=== PATIENT | male | born 2000 | race Caucasian/White ===

== ENCOUNTER 2020-06-04 17:24 | Emergency (ER) | payer OTHER, SELFPAY ==
--- NOTE | ~2020-06-04 | XR_ITS ---
EXAMINATION: XR CHEST CLINICAL INFORMATION: Cough COMPARISON: None TECHNIQUE: Frontal view of the chest was obtained. FINDINGS: No significant abnormality is noted involving the heart, lungs, mediastinum, bony thorax or soft tissues. XR/XR chest 1V IMPRESSION: Unremarkable examination.
[2020-06-04 20:03] VITALS: BP 151/85; PULSE 125; RESP 16; TEMP 37.4; O2SAT 98; BMI 19.3
--- NOTE | 2020-06-04 21:00 | ED_ITS ---
HPI - URI/Sore Throat General Chief Complaint: Upper Respiratory Symptoms Stated Complaint: cough Source: patient Mode of arrival: ambulatory Limitations: no limitations History of Present Illness HPI Narrative: 19-year-old male with past medical history of cerebral palsy, asthma, and congenital foot anomaly presents with several weeks of upper respiratory symptoms. Patient states to have a cough, postnasal drip, and intermittent shortness of breath. He has seen his primary care, tire duster, and has had multiple prescriptions for prednisone, Claritin, and antibiotics. He denies fevers, chills, chest pain or pressure, palpitations, abdominal pain, abdominal distention, dysuria, hematuria, and edema. MD elicited complaint: cough and nasal congestion Onset (ago): week(s) Consistency: constant Severity: moderate Description of mucous: clear and watery Able to tolerate fluids by mouth: Yes Relieving factors: nothing Associated symptoms: denies other symptoms Treatments prior to arrival: antibiotics Related Data Previous Rx's Medication Instructions Recorded benzonatate [Tessalon Perles] 100 mg PO TID PRN #30 cap 06/05/20 Allergies Allergy/AdvReac Type Severity Reaction Status Date / Time pollen extracts [POLLEN] Allergy Unknown RUNNY NOSE Unverified 10/26/19 17:02 Review of Systems Review of Systems: Constitutional: No Fever, No Chills ENT/Mouth: No sore throat, No Rhinorrhea, No Swallowing Difficulty Eyes: No Eye Pain, No Swelling, No Redness Cardiovascular: No Chest Pain, positive intermittent SOB, No Orthopnea, no Edema Respiratory: Positive postnasal drip, Positive Cough, No Sputum, No Wheezing, positive dyspnea Gastrointestinal: No Nausea, No Vomiting, No Diarrhea, No abdominal Pain, No Hematochezia, No Melena Genitourinary: No Dysuria, No Urinary Frequency, No Hematuria Musculoskeletal: No joint pain, No Myalgias Skin: No Skin Lesions, No rash Neuro: No Weakness, No Numbness, No Dizziness, No Headache Psych: No Anxiety/Panic, No Depression Heme/Lymph: No Bruising, No Lymphadenopathy Endocrine: No Polyuria, No Polydipsia Yes all other systems are reviewed and are negative [facility] Past Medical History Attestation statement: The following information was validated with the patient. Source: old records reviewed Medical History Asthma Cerebral palsy Foot anomaly, congenital Social History Social History Advance Directives: No Advance Directives Information Provided: Yes Physical Exam Vital Signs: Vital Signs: Last Vital Signs Temp 99.4 F 06/04/20 20:03 Pulse 88 06/05/20 00:41 Resp 16 06/05/20 00:41 BP 153/93 H 06/05/20 00:41 Pulse Ox 99 06/05/20 00:41 Body Mass Index 19.3 Appearance: Alert. Oriented X3. No acute distress. Small for his age, thin, frail Eyes: Pupils equal, round and reactive to light. EOMI, sclera nonicteric ENT: Pharynx normal. Nares patent, oral mucosa moist, tympanic membranes normal bilaterally Neck: Normal inspection. Neck supple. CVS: Tachycardic heart rate and rhythm. Pulses normal. Respiratory: No respiratory distress. Breath sounds normal. Abdomen: Soft and nontender. Skin: Skin warm and dry. Normal skin color. Normal skin turgor. Extremities: No lower extremity edema. Neuro: No motor deficit. No sensory deficit. Course Course Course Narrative: 19-year-old male presents with cough, postnasal drip and intermittent shortness of breath. Has seen pulmonology and primary care several times over the past few weeks. Was given prednisone, antibiotics, albuterol inhalers, and Claritin. Patient states that all the treatments have not cleared up his postnasal drip or his cough. Will order chest x-ray, COVID testing. COVID test is negative. Chest x-ray is negative for acute findings. Will order Tessalon Perles to help with cough. Patient was advised to follow-up with pulmonology. MDM - URI/Sore Throat Differential Diagnosis Differential diagnosis: Likely upper respiratory infection, viral infection, bronchitis and influenza Medical Records Attestation: I reviewed the patient's medical records. Lab Data Attestation: I reviewed the patient's lab results. Labs: Lab Results 06/05/20 Range/Units 00:45 Coronavirus (PCR) NEGATIVE (Negative) Influenza Type A (PCR) NEGATIVE (Negative) Influenza Type B (PCR) NEGATIVE (Negative) RSV RNA Qual (PCR) NEGATIVE (Negative) Imaging Data Chest x-ray: Attestation: I personally reviewed and interpreted this imaging study as follows: Radiologist's impression: EXAMINATION: XR CHEST CLINICAL INFORMATION: Cough COMPARISON: None TECHNIQUE: Frontal view of the chest was obtained. FINDINGS: No significant abnormality is noted involving the heart, lungs, mediastinum, bony thorax or soft tissues. XR/XR chest 1V IMPRESSION: Unremarkable examination. Discharge Plan Discharge Clinical Impression: Upper respiratory infection Qualifiers: URI type: unspecified viral URI Qualified Code(s): J06.9 - Acute upper respiratory infection, unspecified Patient Disposition: Home, Self-Care Instructions: Upper Respiratory Infection (ED), Cold Symptoms (ED) Additional Instructions: You were evaluated for a cough. We tested you for COVID-19. Your test results are pending. I will call you with your results. Please use Tessalon Perles as needed for cough. Continue to use medications that were prescribed to you by your primary care provider and tire duster. I thank you for your kindness and patience while waiting for care. Thank you for choosing this emergency department for evaluation. Please follow-up with primary care physician as needed. Return to the emergency department for any new, concerning, or worsening symptoms. Prescriptions: New benzonatate [Tessalon Perles] 100 mg capsule 100 mg PO TID PRN (Reason: cough) Qty: 30 RF: 0 Interventions: ED Discharge Assessment Last Done: 06/05/20 01:00 Discharge Date/Time: 06/05/20 01:01
[2020-06-05 00:41] VITALS: BP 153/93; PULSE 88; RESP 16; O2SAT 99
[2020-06-05] MEDS: Benzonatate 100 MG CAPSULE 200 MG PO (00:51)
[2020-06-05 01:37] LABS: Influenza A PCR NEGATIVE (Negative); Influenza B PCR NEGATIVE (Negative); Resp Syncy Virus RNA Qual PCR NEGATIVE (Negative); SARS COV2 PCR INHOUSE NEGATIVE (Negative)
== END 2020-06-05 01:01 | disposition home or self-care (01) ==
PROVIDERS: Nurse Practitioner Family; Emergency Provider Internal Medicine
DX: J06.9 Acute upper respiratory infection, unspecified (principal); Z20.822 Contact with and (suspected) exposure to COVID-19; R00.0 Tachycardia, unspecified; J45.909 Unspecified asthma, uncomplicated; G80.9 Cerebral palsy, unspecified
CPT/HCPCS: 0241U; 36415; 71045; 99283; 99284

== ENCOUNTER 2021-09-18 10:58 | Outpatient (REF) | payer MEDICAID, SELFPAY ==
[2021-09-18 13:41] LABS: MANUAL DIFF FLAG NO
[2021-09-18 13:43] LABS: Basophils Absolute Auto 0.1 X10*3/uL (0.0-0.2); Basophils Percent Auto 0.7 % (0-2); Eosinophils Absolute Auto 0.1 X10*3/uL (0.0-0.4); Hematocrit 44.9 % (42.0-52.0); Hemoglobin 15.4 g/dl (14.0-18.0); Imm Gran Abs Auto 0.01 X10*3/uL (0.00-0.03); Imm Gran Pct Auto 0.1 % (0.0-0.4); Lymphocytes Absolute Auto 3.4 X10*3/uL (1.2-4.9); Lymphocytes Percent Auto 50.2 % (20-40); Mean Corpuscular HGB Conc 34.3 g/dl (31.0-36.0); Mean Corpuscular Hemoglobin 30.6 pg (27.0-33.0); Mean Corpuscular Volume 89.3 fL (80.0-98.0); Monocytes Absolute Auto 0.6 X10*3/uL (0.1-1.2); Monocytes Percent Auto 9.1 % (2-11); Neutrophils Absolute Auto 2.6 x10*3/uL (2.0-8.3); Neutrophils Percent Auto 37.9 % (45-73); Platelet Count 169 X10*3/uL (160-400); Red Blood Count 5.03 X10*6/uL (4.60-5.80); Red Cell Distribution Width 12.4 % (11.0-16.0); White Blood Count 6.8 X10*3/uL (4.8-10.8)
[2021-09-18 14:10] LABS: Alanine Aminotransferase 134 U/L (0-40); Albumin Level 4.7 g/dL (3.5-5.0); Alkaline Phosphatase 74 U/L (39-117); Anion Gap 16 (12-20); Aspartate Amino Transferase 73 U/L (5-37); Bilirubin Total 0.8 mg/dL (0.0-1.0); Blood Urea Nitrogen 21 mg/dL (9-16); Calcium 9.7 mg/dL (8.4-10.2); Carbon Dioxide 22 mmol/L (22-29); Chloride 103 mmol/L (96-108); Estimated Glomerular Filt Rate > 60; Glucose Fasting 83 mg/dL (60-99); Potassium 4.5 mmol/L (3.3-5.1); Sodium 136 mmol/L (135-145); Total Protein 7.3 g/dL (6.5-8.0)
[2021-09-18 14:16] LABS: TSH reflex Free T4 2.66 uIU/mL (0.32-4.0)
== END 2021-09-18 10:59 | disposition home or self-care (01) ==
LOC: HO.10HDL 10:58
PROVIDERS: Visit Provider Internal Medicine
DX: Z00.00 Encounter for general adult medical examination without abnormal findings (principal); G80.8 Other cerebral palsy; J45.909 Unspecified asthma, uncomplicated; K21.9 Gastro-esophageal reflux disease without esophagitis; R74.01 Elevation of levels of liver transaminase levels
CPT/HCPCS: 36415; 80053; 84443; 85025

== ENCOUNTER 2022-04-14 12:44 | Outpatient (REF) | payer MEDICAID, SELFPAY ==
[2022-04-14 15:50] LABS: Alanine Aminotransferase 107 U/L (0-40); Albumin Level 4.9 g/dL (3.5-5.0); Alkaline Phosphatase 74 U/L (39-117); Anion Gap 19 (12-20); Aspartate Amino Transferase 49 U/L (5-37); Bilirubin Total 1.6 mg/dL (0.0-1.0); Blood Urea Nitrogen 15 mg/dL (9-16); Carbon Dioxide 20 mmol/L (22-29); Chloride 104 mmol/L (96-108); Estimated Glomerular Filt Rate > 60; Glucose Random 96 mg/dL (60-115); Iron 154 mcg/dL (45-160); Percent Iron Saturation 41 % (15-50); Potassium 4.5 mmol/L (3.3-5.1); Sodium 138 mmol/L (135-145); Total Iron Binding Capacity 375 mcg/dL (228-428); Total Protein 7.3 g/dL (6.5-8.0); Unsaturated Iron Binding 221 ug/dL
[2022-04-14 15:56] LABS: Ferritin 295 ng/mL (20-250)
[2022-04-15 05:59] LABS: HBc Num1 0.04 S/CO (0.00-0.79); HBsAGNum1 0.28 S/CO (0.00-0.99); Hepatitis A Antibody IgM 0.24 Index (0-0.79); Hepatitis B Core Antibody Nonreactive (Nonreactive); Hepatitis B Surface Antigen Negative (Negative); ~HepC Num1 0.39 S/CO (0.00-0.79); ~Hepatitis A Antibody IgM Nonreactive (Nonreactive); ~Hepatitis B Surface Antibody NONREACTIVE (Nonreactive); ~Hepatitis C Antibody Nonreactive (Nonreactive)
[2022-04-17 18:53] LABS: Ceruloplasmin 25 mg/dL (18-36); Transferrin 416 mg/dL (188-341)
[2022-04-19 12:53] LABS: Anti Nuclear Antibody Screen NEGATIVE (NEGATIVE)
[2022-04-19 13:43] LABS: Smooth Muscle Antibody <20 U (<20)
== END 2022-04-14 12:45 | disposition home or self-care (01) ==
LOC: HO.10HDL 12:44
PROVIDERS: Visit Provider Internal Medicine
DX: F81.9 Developmental disorder of scholastic skills, unspecified (principal); J45.909 Unspecified asthma, uncomplicated
CPT/HCPCS: 36415; 80053; 82390; 82728; 83540; 84466; 86015; 86038; 86039; 86704; 86706; 86709; 86803; 87340

== ENCOUNTER 2022-04-22 11:31 | Outpatient (REF) | payer MEDICAID, SELFPAY | END 2022-04-22 11:32 | disposition home or self-care (01) | LOC: HO.10HDL 11:31 | PROVIDERS: Visit Provider Internal Medicine | DX: Z00.00 Encounter for general adult medical examination without abnormal findings (principal); G80.8 Other cerebral palsy; R74.01 Elevation of levels of liver transaminase levels; R79.0 Abnormal level of blood mineral | CPT/HCPCS: 36415; 81256 ==

== ENCOUNTER 2022-08-20 06:02 | Emergency (ER) | payer MEDICAID, SELFPAY ==
--- NOTE | ~2022-08-20 | CT_ITS ---
EXAMINATION: CT ABDOMEN AND PELVIS WITH CONTRAST CLINICAL INFORMATION: Abdominal pain and diarrhea COMPARISON: None available. TECHNIQUE: Multidetector volumetric images were obtained from the superior aspect of the liver through the pubic symphysis following administration 85 mL of Omnipaque 350 intravenous contrast. Sagittal and coronal reformatted images were obtained on the technologist's workstation. Oral contrast: No This CT examination was performed using dose optimization techniques as appropriate, variously including the following: *Automated exposure control *Adjustment of mA and/or kV according to patient size (this includes techniques or standardized protocols for targeted exams where dose is matched to indication/reason for exam; i.e. extremities or head) *Use of iterative reconstruction technique DLP: 251 mGy-cm FINDINGS: LUNG BASES: The visualized lung bases are unremarkable. LIVER, GALLBLADDER, AND BILIARY TREE: The liver is normal in size, shape, and attenuation. No focal hepatic lesion or biliary ductal dilatation is present. The gallbladder is unremarkable with no evidence of radiopaque gallstones, gallbladder wall thickening, or obvious pericholecystic inflammatory changes. PANCREAS: Unremarkable. SPLEEN: Unremarkable. ADRENAL GLANDS: Unremarkable. KIDNEYS AND URETERS: The kidneys are normal in size, shape, and attenuation. No hydronephrosis, hydroureter, or calculi seen. No perinephric stranding. BLADDER: Unremarkable. GASTROINTESTINAL TRACT: Minimal thickening of the descending colon and rectosigmoid probably secondary to underdistention. No pericolonic inflammatory changes are seen. The small and large bowel are otherwise unremarkable. The appendix is not identified with certainty but there is no evidence of appendicitis. ABDOMINAL WALL: No significant hernia is appreciated. LYMPH NODES: Normal. VASCULAR: Unremarkable. PELVIC VISCERA: Unremarkable. OSSEOUS STRUCTURES: Unremarkable. CT/CT abdomen pelvis w IV con IMPRESSION: A cause for the patient's abdominal pain and diarrhea has not been found. Fleischner guidelines were followed.
[2022-08-20 06:31] VITALS: BP 143/87; PULSE 76; RESP 18; TEMP 36.4; O2SAT 100; BMI 19.2
--- NOTE | 2022-08-20 07:17 | ED_ITS ---
HPI - Abdominal Pain General Chief Complaint: Abdominal Pain Stated Complaint: abd pain, blood in stool Time Seen by Provider: 08/20/22 07:03 History of Present Illness HPI narrative: Patient is a 21-year-old male presents today with having nausea vomiting diarrhea. No history of abdominal surgery in the past. No previous history of travel. No recent antibiotic. Diarrhea is mostly brown in color. Very small amount of blood on wiping. Patient from home. No fever no chills. No focal weakness. Patient from home. Related Data Home Medications Medication Instructions Recorded Confirmed fluticasone propionate 110 2 puff PO BID 03/24/21 mcg/actuation HFA aerosol inhaler (Flovent HFA) fluticasone propionate 250 0 inh inhalation 03/24/21 mcg/actuation blister powder for inhalation (Flovent Diskus) loratadine 10 mg tablet 10 mg PO DAILY 03/24/21 sodium chloride 0.65 % nasal spray spray intranasal 03/24/21 aerosol (Saline Nasal) Previous Rx's Medication Instructions Recorded benzonatate 100 mg capsule 100 mg PO TID PRN cough #30 caps 06/05/20 (Tesrabia Radford) omeprazole 40 mg capsule,delayed 40 mg PO DAILY #20 caps 03/24/21 release ondansetron 4 mg disintegrating 4 mg PO TID PRN nausea and 08/20/22 tablet vomiting 5 days #10 tabs Allergies Allergy/AdvReac Type Severity Reaction Status Date / Time pollen extracts [POLLEN] Allergy Unknown RUNNY NOSE Unverified 03/24/21 12:17 Review of Systems Review of Systems Positive nausea vomiting diarrhea Yes all other systems are reviewed and are negative PMFSH Past Medical History Attestation statement: The following information was validated with the patient. Medical History Asthma Cerebral palsy Foot anomaly, congenital Social History Social History Advance Directives: No Advance Directives Information Provided: No Physical Exam ED Vital Signs: Vital Signs - 24 hr 08/20/22 06:31 Temperature 97.6 F Pulse Rate 76 Respiratory Rate 18 Blood Pressure 143/87 H Pulse Oximetry 100 Oxygen Delivery Method Room Air BMI result Body Mass Index 19.2 Appearance: Alert. Oriented X3. No acute distress. Eyes: Pupils equal, round and reactive to light. ENT: Pharynx normal. Neck: Normal inspection. Neck supple. No lymph nodes noted. No crepitus CVS: Normal heart rate and rhythm. Pulses normal. Normal S1 and S2 Respiratory: No respiratory distress. Breath sounds normal. No Wheezing. No rales Abdomen: Soft and nontender. No rigidity. No distention. good BS x4 Skin: Skin warm and dry. Normal skin color. Normal skin turgor. Extremities: No lower extremity edema. Neurovascular intact to all extremities. No Lacerations. No Rash Neuro: Oriented X 3. No motor deficit. No sensory deficit. Moving all extermities. No slurred speech Medical Decision Making Medical Decision Making [facility] Narrative: Patient of positive nausea vomiting diarrhea generalized malaise. Given IV fluid Zofran for nausea symptoms support. Symptoms improved dramatically. Tolerating fluids. Will discharge patient home. Differential Diagnosis Gastroenteritis, obstruction, appendicitis, diverticulitis, abscess, perforation Lab Data [facility] Lab Attestation statement: I reviewed the patient's lab results. 08/20/22 08:12 08/20/22 08:12 Labs: Lab Results 08/20/22 08/20/22 08/20/22 Range/Units 07:11 08:12 08:12 WBC 11.7 H (4.8-10.8) X10*3/uL RBC 5.13 (4.60-5.80) X10*6/uL Hgb 15.6 (14.0-18.0) g/dl Hct 44.9 (42.0-52.0) % MCV 87.5 (80.0-98.0) fL MCH 30.4 (27.0-33.0) pg MCHC 34.7 (31.0-36.0) g/dl RDW 12.1 (11.0-16.0) % Plt Count 236 D (160-400) X10*3/uL MPV 11.0 (9.4-12.4) fL Immature Gran % (Auto) 0.3 (0.0-0.4) % Neut % (Auto) 82.9 H (45-73) % Lymph % (Auto) 12.7 L (20-40) % [place] % (Auto) 3.7 (2-11) % Eos % (Auto) 0.0 (0-4) % Baso % (Auto) 0.4 (0-2) % Lymph # (Auto) 1.5 (1.2-4.9) X10*3/uL [place] # (Auto) 0.4 (0.1-1.2) X10*3/uL Eos # (Auto) 0.0 (0.0-0.4) X10*3/uL Baso # (Auto) 0.1 (0.0-0.2) X10*3/uL Abs Immat Gran (auto) 0.04 H (0.00-0.03) X10*3/uL Absolute Neuts (auto) 9.7 H (2.0-8.3) x10*3/uL Absolute Nucleated RBC 0.000 (0.0-0.012) X10*3/uL Nucleated RBC % (auto) 0.0 (0.0-0.2) /100WBC Sodium 139 (135-145) mmol/L Potassium 4.0 (3.3-5.1) mmol/L Chloride 106 (96-108) mmol/L Carbon Dioxide 20 L (22-29) mmol/L Anion Gap 17 (12-20) BUN 15 (9-16) mg/dL Creatinine 0.85 (0.5-1.4) mg/dL Estim Creat Clear Calc 91.7 Estimated GFR > 60 Random Glucose 106 (60-115) mg/dL Calcium 10.6 H (8.4-10.2) mg/dL Total Bilirubin 1.9 H (0.0-1.0) mg/dL Direct Bilirubin 0.4 (0.0-0.5) mg/dL AST 23 (5-37) U/L ALT 67 H (0-40) U/L Alkaline Phosphatase 80 (39-117) U/L Total Protein 7.7 (6.5-8.0) g/dL Albumin 4.9 (3.5-5.0) g/dL Lipase 21 (8-78) U/L Urine Color Yellow Urine Appearance Clear Urine pH 8.5 (5.0-9.0) Ur Specific [place] 1.020 (1.005-1.025) Urine Protein Negative (Neg-Trace) mg/dL Urine Glucose (UA) Negative (Negative) mg/dL Urine Ketones 40 (Negative) mg/dL Urine Blood Negative (Negative) Urine Nitrite Negative (Negative) Ur Leukocyte Esterase Negative (Negative) Independent Interpretation I performed an independent interpretation of an: CT Scan Interpretation: CT scan of the abdomen grossly negative Radiology Impression Discussion of test interpretation with radiology: I have reviewed the radiologi st's reading. Medications Administered Discontinued Medications Generic Name Dose Route Start Last Admin Trade Name Freq PRN Reason Stop Dose Admin Sodium Chloride 1,000 mls @ 999 mls/hr 08/20/22 07:30 08/20/22 10:18 Ns IV 08/20/22 08:30 Infused .Q1H1M DEWEY Infusion Iohexol 85 ml 08/20/22 09:19 08/20/22 09:19 Iohexol 350 Mg/Ml 100 Ml Infus..Btl IV 08/20/22 09:20 85 ml ONCE ONE Administration Discharge Plan Discharge Clinical Impression: Abdominal pain Patient Disposition: Home, Self-Care Instructions: Acute Nausea and Vomiting (ED), Abdominal Pain (ED) Prescriptions: New ondansetron 4 mg tablet,disintegrating 4 mg PO TID PRN (Reason: nausea and vomiting) 5 Days Qty: 10 0RF No Action benzonatate [Tessalon Perles] 100 mg capsule 100 mg PO TID PRN (Reason: cough) Qty: 30 0RF Flovent Diskus 250 mcg/actuation blister with device 0 inh inhalation loratadine 10 mg tablet 10 mg PO DAILY Flovent HFA 110 mcg/actuation HFA aerosol inhaler 2 puff PO BID Saline Nasal 0.65 % aerosol,spray intranasal omeprazole 40 mg capsule,delayed release(DR/EC) 40 mg PO DAILY Qty: 20 0RF Referrals: Kateryna Estrada MD [Primary Care Provider] - 08/24/22
[2022-08-20 07:24] LABS: Appearance Urine Clear; Color Urine Yellow; Glucose Urine UA Negative (Negative); Leukocyte Esterase Urine Negative (Negative); Nitrite Urine Negative (Negative); PH 8.5 (5.0-9.0); Urine Blood Negative (Negative); Urine Ketones 40 mg/dL (Negative); Urine Protein Negative (Neg-Trace)
[2022-08-20] MEDS: 0.9 % Sodium Chloride 1,000 ML 999 ML IV (08:00)
[2022-08-20 08:17] LABS: MANUAL DIFF FLAG NO
[2022-08-20 08:19] LABS: Basophils Absolute Auto 0.1 X10*3/uL (0.0-0.2); Basophils Percent Auto 0.4 % (0-2); Hematocrit 44.9 % (42.0-52.0); Hemoglobin 15.6 g/dl (14.0-18.0); Imm Gran Abs Auto 0.04 X10*3/uL (0.00-0.03); Imm Gran Pct Auto 0.3 % (0.0-0.4); Lymphocytes Absolute Auto 1.5 X10*3/uL (1.2-4.9); Lymphocytes Percent Auto 12.7 % (20-40); Mean Corpuscular HGB Conc 34.7 g/dl (31.0-36.0); Mean Corpuscular Hemoglobin 30.4 pg (27.0-33.0); Mean Corpuscular Volume 87.5 fL (80.0-98.0); Monocytes Absolute Auto 0.4 X10*3/uL (0.1-1.2); Monocytes Percent Auto 3.7 % (2-11); Neutrophils Absolute Auto 9.7 x10*3/uL (2.0-8.3); Neutrophils Percent Auto 82.9 % (45-73); Platelet Count 236 X10*3/uL (160-400); Red Blood Count 5.13 X10*6/uL (4.60-5.80); Red Cell Distribution Width 12.1 % (11.0-16.0); White Blood Count 11.7 X10*3/uL (4.8-10.8)
[2022-08-20 08:39] LABS: Alanine Aminotransferase 67 U/L (0-40); Albumin Level 4.9 g/dL (3.5-5.0); Alkaline Phosphatase 80 U/L (39-117); Anion Gap 17 (12-20); Aspartate Amino Transferase 23 U/L (5-37); Bilirubin Direct 0.4 mg/dL (0.0-0.5); Bilirubin Total 1.9 mg/dL (0.0-1.0); Blood Urea Nitrogen 15 mg/dL (9-16); Calcium 10.6 mg/dL (8.4-10.2); Carbon Dioxide 20 mmol/L (22-29); Chloride 106 mmol/L (96-108); Creatinine Clr Calc Pharmacy 91.7; Estimated Glomerular Filt Rate > 60; Glucose Random 106 mg/dL (60-115); Lipase 21 U/L (8-78); Sodium 139 mmol/L (135-145); Total Protein 7.7 g/dL (6.5-8.0)
[2022-08-20] MEDS: iohexoL 350 MG/ML 100 ML INFUS..BTL 85 ML IV (09:19)
== END 2022-08-20 11:19 | disposition home or self-care (01) ==
PROVIDERS: Emergency Provider Emergency Medicine Emergency Medical Services; PCP Internal Medicine
DX: K92.1 Melena (principal); R10.2 Pelvic and perineal pain; R11.2 Nausea with vomiting, unspecified; Z79.899 Other long term (current) drug therapy
CPT/HCPCS: 36415; 74177; 80048; 80076; 81003; 83690; 85025; 96360; 96361; 99283; 99284; Q9967

== ENCOUNTER 2024-04-02 02:17 | Emergency (ER) | payer MEDICAID, SELFPAY ==
--- NOTE | 2024-04-02 | ECG_ITS ---
Test Reason : TACHY Blood Pressure : */* mmHG Vent. Rate : 104 BPM Atrial Rate : 104 BPM P-R Int : 138 ms QRS Dur : 96 ms QT Int : 314 ms P-R-T Axes : 76 64 47 degrees QTcB Int : 412 ms Sinus tachycardia Otherwise normal ECG No previous ECGs available Referred By: Generic ED Physician Electronically Signed By: CHARLES MANDUJANO
[2024-04-02 02:19] VITALS: BP 131/79; PULSE 125; O2SAT 98
[2024-04-02 02:21] VITALS: BP 136/81; PULSE 120; RESP 18; TEMP 37.2; O2SAT 97; BMI 19.9
--- NOTE | 2024-04-02 02:37 | MHC.EDTECH ---
Patient brought into triage area,EKG taken per order and signed by provider, Sars/flu/rsv obtained and sent to lab
[2024-04-02 03:21] LABS: Influenza A PCR NEGATIVE (Negative); Influenza B PCR NEGATIVE (Negative); Resp Syncy Virus RNA Qual PCR NEGATIVE (Negative); SARS COV2 PCR INHOUSE POSITIVE (Negative)
--- NOTE | 2024-04-02 03:46 | ED_ITS ---
HPI - URI/Sore Throat General Chief Complaint: Upper Respiratory Symptoms Stated Complaint: coughing up phlegm Time Seen by Provider: 04/02/24 03:36 Source: patient Mode of arrival: ambulatory Limitations: no limitations History of Present Illness ED Provider: Dr. Zully Story HPI Narrative: patient comes to the emergency room complaining of 1 week of cough, flu-like symptoms, chills, runny nose, sore throat, coughing. Patient states that he has been using albuterol more than usual. Patient denies fever chills Related Data Home Medications ?Medication ?Instructions ?Recorded ?Confirmed fluticasone propionate 110 2 puff PO BID 03/24/21 mcg/actuation HFA aerosol inhaler (Flovent HFA) fluticasone propionate 250 0 inh inhalation 03/24/21 mcg/actuation blister powder for inhalation (Flovent Diskus) loratadine 10 mg tablet 10 mg PO DAILY 03/24/21 sodium chloride 0.65 % nasal spray spray intranasal 03/24/21 aerosol (Saline Nasal) Previous Rx's ?Medication ?Instructions ?Recorded benzonatate 100 mg capsule 100 mg PO TID PRN cough #30 caps 06/05/20 (Tesrabia Radford) omeprazole 40 mg capsule,delayed 40 mg PO DAILY #20 caps 03/24/21 release ondansetron 4 mg disintegrating 4 mg PO TID PRN nausea and 08/20/22 tablet vomiting 5 days #10 tabs benzonatate 100 mg capsule 100 mg PO TID PRN cough #12 caps 04/02/24 prednisone 50 mg tablet 50 mg PO DAILY #5 tabs 04/02/24 Allergies Allergy/AdvReac Type Severity Reaction Status Date / Time pollen extracts [POLLEN] Allergy Unknown RUNNY NOSE Unverified 04/02/24 02:24 Review of Systems Review of Systems: Constitutional : No Weight loss, No Fever, No Chills, No Night Sweats, No Fatigue, No Malaise ENT/Mouth : No Hearing loss, No Ear Pain, No Nasal Congestion, No Sinus Pain, No Hoarseness, No sore throat, No Rhinorrhea, No Swallowing Difficulty Eyes: No Eye Pain, No Swelling, No Redness, No Foreign Body, No Discharge, No Vision Changes Cardiovascular : No Chest Pain, No SOB, No Dyspnea on Exertion, No Orthopnea, No Edema, No Palpitations Respiratory : complaining of dry cough, wheezing, shortness of breath Gastrointestinal : No Nausea, No Vomiting, No Diarrhea, No Constipation, No abdominal Pain, No Hematochezia, No Melena Genitourinary : no irregular bleeding, No Dysuria, No Urinary Frequency, No Hematuria, No Urinary Incontinence, No Urgency, No Flank Pain, No Urinary Flow Changes, No Hesitancy Musculoskeletal : No joint pain, No Myalgias, No Joint Swelling Skin : No Skin Lesions, No rash Neuro : No Weakness, No Numbness, No Paresthesias, No Loss of Consciousness, No Dizziness, No Headache Psych : No Anxiety/Panic, No Depression, No SI/HI/AH/VH, No Social Issues, Heme/Lymph: No Bruising, No Bleeding,No Lymphadenopathy Endocrine : No Polyuria, No Polydipsia, No Temperature Intolerance [facility] Past Medical History Medical History Foot anomaly, congenital Cerebral palsy Asthma Social History Social History Advance Directives: No Advance Directives Information Provided: Yes Advance Directives on File: No Physical Exam Vital Signs: Vital Signs: Last Vital Signs Temp 98.9 F 04/02/24 02:21 Pulse 120 H 04/02/24 02:21 Resp 18 04/02/24 02:21 BP 136/81 04/02/24 02:21 Pulse Ox 97 04/02/24 02:21 O2 Del Method Room Air 04/02/24 02:21 BMI result Body Mass Index 19.9 Const: Other: Appearance: Alert. Oriented X3. No acute distress. Eyes: Pupils equal, round and reactive to light. ENT: Pharynx normal. Neck: Normal inspection. Neck supple. No lymph nodes noted. No crepitus CVS: Normal heart rate and rhythm. Pulses normal. Normal S1 and S2 Respiratory: No respiratory distress. Breath sounds normal. No Wheezing. No rales Abdomen: Soft and nontender. No rigidity. No distention. Skin: Skin warm and dry. Normal skin color. Normal skin turgor. Extremities: No lower extremity edema. No Lacerations. No Rash Neuro: Oriented X 3. No motor deficit. No sensory deficit. Moving all extremities. No slurred speech. CN 2 through 12 grossly intact Psych: calm, cooperative, normal affect Medical Decision Making Medical Decision Making [facility] Narrative: my interpretation of labs: Patient tested positive for COVID-19. I discussed with the patient that he is on day 7 of his viral illness, at this time, the antiviral Medication will not help. at this time, there is no wheezing, no shortness of breath. I discussed with the patient that we will provide him with prednisone since he has been using his inhaler more frequent than usual. Cough medication was sent to the patient's pharmacy. Patient states that he has enough inhalers at home. Differential Diagnosis Differential Diagnoses: The differential diagnosis associated with the pr esentation includes ( COVID, RSV, influenza) Lab Data [facility] Lab Attestation statement: I reviewed the patient's lab results. Labs: Lab Results 04/02/24 Range/Units 02:36 Influenza Type A (PCR) NEGATIVE (Negative) Influenza Type B (PCR) NEGATIVE (Negative) RSV RNA Qual (PCR) NEGATIVE (Negative) SARS-CoV-2 RNA (RT-PCR) POSITIVE A (Negative) Discharge Plan Discharge Clinical Impression: COVID-19 Patient Disposition: Home, Self-Care Instructions: COVID-19 (Coronavirus Disease 2019) (ED) Additional Instructions: Please follow-up with your primary care physician tomorrow. If you have any worsening or new symptoms, please return to the emergency room or call 911 Prescriptions: New prednisone 50 mg tablet 50 mg PO DAILY Qty: 5 0RF benzonatate 100 mg capsule 100 mg PO TID PRN (Reason: cough) Qty: 12 0RF No Action benzonatate [Tessalon Perles] 100 mg capsule 100 mg PO TID PRN (Reason: cough) Qty: 30 0RF ondansetron 4 mg tablet,disintegrating 4 mg PO TID PRN (Reason: nausea and vomiting) 5 Days Qty: 10 0RF Flovent Diskus 250 mcg/actuation blister with device 0 inh inhalation loratadine 10 mg tablet 10 mg PO DAILY Flovent HFA 110 mcg/actuation HFA aerosol inhaler 2 puff PO BID Saline Nasal 0.65 % aerosol,spray intranasal omeprazole 40 mg capsule,delayed release(DR/EC) 40 mg PO DAILY Qty: 20 0RF Stand Alone Forms: Work/School Release Print Language: Qatari
[2024-04-02 05:11] VITALS: BP 136/81; PULSE 120; RESP 18; TEMP 37.2; O2SAT 97
== END 2024-04-02 04:00 | disposition home or self-care (01) ==
PROVIDERS: Emergency Provider Emergency Medicine; PCP Internal Medicine
DX: U07.1 COVID-19 (principal); R00.0 Tachycardia, unspecified; R05.9 Cough, unspecified; R09.89 Other specified symptoms and signs involving the circulatory and respiratory systems; J02.9 Acute pharyngitis, unspecified; Z79.899 Other long term (current) drug therapy
CPT/HCPCS: 0241U; 93005; 99283

== ENCOUNTER → 2024-04-02 02:35 | Outpatient (BNV) | payer MEDICAID, SELFPAY | PROVIDERS: Emergency Provider Emergency Medicine; PCP Internal Medicine; Visit Provider Internal Medicine | DX: R00.0 Tachycardia, unspecified (principal) | CPT/HCPCS: 93010 ==

== ENCOUNTER 2024-11-22 10:46 | Outpatient (REF) | payer MEDICAID, SELFPAY ==
--- OUTSIDE RECORDS SUMMARY | 2024-08-02 12:20 | XMS_ITS ---
Author Organization [facility] Address [address] [place] [address] Care Team Providers Care Stretch Box Tender Name Role Phone Kateryna Estrada Primary Care Provider Unavailab Anshu Palomo [phone] REASON FOR VISIT ACID REFLUX Encounters Encounter Location Date Provider Diagnosis [facility] [address] [place] [address] 08/02/2024 Anshu Haines Plan Of Treatment No Information Progress Notes * ZORAIDA ALEXLINNETTEDOB:2000 ( 24 yo M)Acc No.[id number]:08/02/2024 Progress Notes Patient: RACHID DUDLEY Provider: Yazmin Haines MD :2000 A ge:23 Y S ex:Male Date:08/02/2024 Address:[address] [place] [address] [address] [id number] Pcp:Kateryna Estrada Subjective: * Chief Complaints: * 1 . ACID REFLUX. * Medical History: Objective: * Vitals: Assessment: Plan: * Treatment: * * The named appointment provid er may or may not be the originator of this progress note, and it is not deemed complete until electronically signed by the appointment provider. Sign off status: Pending * Provider: Yazmin Haines MD Date: 0 08/02/2024 Generated for Theresa ahuja/Celina/eTransmitting on: 01:00 PM EDT
--- OUTSIDE RECORDS SUMMARY | 2024-11-15 10:40 | XMS_ITS ---
Author Organization [facility] Address [address] [place] [address] Care Team Providers Care Skiver Blockers Name Role Phone Alenyolanda Kateryna Primary Care Provider Unavailab Anshu Palomo Unavailable [phone] Allergies No Known Allergies REASON FOR VISIT Patient presents today for acid reflux Medications Medication SIG (Take, Route, Frequency, Duration) Notes Start Date End Date Status Omeprazole 20 MG 1 capsule 1/2 to 1 h our before morning meal Orally Once a day 11/15/2024 Not-Taking Albuterol Sulfate HFA 108 (90 Base) MCG/ACT 1 puff as needed Inhalation every 4 hrs 11/15/2024 Active Loratadine 10 MG 1 tablet Orally Once a day; Duration: 30 day(s) 11/15/2024 Active Flovent Diskus 11/15/2024 Acti ve MiraLax 17 GM/SCOOP as directed Orally PRN 11/15/2024 Not-Taking Social History Tobacco Use: Social History Observation Description Date Details (start date - stop date) Never Smoker NA - NA Tobacco Control (Standard) Question Answer Notes Tobacco use: Nonsmoker AUDIT-C (Standard) Question Answer Notes Did you have a drink containing alcohol in the p ast year? No Points 0 Interpretation Negative Problems Problem Type SNOMED Code ICD Code Onset Dates Problem Status W/U Status Risk Notes Problem Elevated liver enzymes level (415689147) Elevated liver function tests (R79.89) Active confirmed Problem Gastroesophageal reflux disease (713731839) GERD (gastroesoph ageal reflux disease) (K21.9) Active confirmed Vital Signs Temperature 98.2 degrees Fahrenheit 11/16/19 25 Blood pressure systolic 001 mm Hg 11/16/19 25 Blood pressure diastolic 01 mm Hg 025 Height 62 in 11/15/2024 Weight 104.6 lbs 11/15/2024 BMI 19.13 kg/m2 11/15/2024 Encounters Encounter Location Date Provider Diagnosis [facility] [address] [place] [address] 11/15/2024 Anshu Haines Elevated liver function tests R79.89 and GERD (gastroesophageal reflux disease) K21.9 Assessments Encounter Date Diagnosis (ICD Code) Assessment Notes Treatment Notes Treatment Clinical Notes Section Notes 11/15/2024 Elevated liver function tests (ICD-10 - R79.89) Need Pediatric GI Dr. Vasques records from [facility] re: liver biopsy, etc 11/15/2024 GERD (gastroesophage al reflux disease) (ICD-10 - K21.9) Plan Of Treatment Treatment Notes Assessment Notes Elevated liver function tests Need Pedia tric GI Dr. Vasques records from [facility] re: liver biopsy, etc Pending Test Test Name Order Date LIVER PROFILE 11/15/2024 CBC w DIFF 11/15/2024 Prothrombin Time INR 11/15/2024 Liver Fibrosis Pnl 11/15/2024 Next Appt Details Follow Up: prn, Reason: Progress Notes * ZORAIDA RACHIDDOB:2000 ( 24 yo M)Acc No.[id number]:11/15/2024 Progress Notes Patient: RACHID DUDLEY Provider: Yazmin Haines MD :2000 A ge:24 Y S ex:Male Date:11/15/2024 Address:[address] [place] [address] Pcp:Kateryna Estrada Subjective: * Chief Complaints: * 1 . Patient presents today for acid reflux. * Medical History: A sthma, GERD, Denies LA,DM,CVA,Lung disease,renal disease, Cerebral palsy-affects walking, legs, etc,. * Surgical History: H amstring lengthening 2017. * Family History: F ather: alive, diagnosed with HTN (hypertension). M other: alive. No family history of colon cancer or liver cancer. * Social History: T obacco Use: T obacco Control (Standard) T obacco use: N onsmoker. M iscellaneous: M arital status: single. 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 D rug/Alcohol: A NEEMA-C (Standard) D id you have a drink containing alcohol in the past year? N o,?Points 0 , I nterpretation N egative. * Medications: T aking Albuterol Sulfate HFA 108 (90 Base) MCG/ACT Aerosol Solution 1 puff as needed Inhalation every 4 hrs , Taking Loratadine 10 MG Tablet 1 tablet Orally Once a day , Taking Flovent Diskus , Not-Taking/PRN Omeprazole 20 MG Capsule Delayed Release 1 capsule 1/2 to 1 hour before morning meal Orally Once a day , Not-Taking/PRN MiraLax 17 GM/SCOOP Powder as directed Orally , Notes to Pharmacist: PRN * Allergies: N .K.D.A. Objective: * Vitals: W t:104.6lbs, Ht:62in, BMI:19.13Index, BP:001/01mm Hg, Temp:98.2, Ht-cm: 157.48, Wt-k.45. Assessment: * Assessment: 1. E levated liver function tests - R79.89 (Primary) 2 . G ERD (gastroesophageal reflux disease) - K21.9 Plan: * Treatment: * Follow Up: p rn * * The named appointment provid er may or may not be the originator of this progress note, and it is not deemed complete until electronically signed by the appointment provider. Sign off status: Pending * Provider: Yazmin Haines MD Date: Generated for Theresa ahuja/Celina/Manuel on: 01:00 PM EDT
--- OUTSIDE RECORDS SUMMARY | 2024-11-22 13:00 | XMS_ITS | Patient Health Record ---
Author Organization [facility] Address [address] [place] [address] Care Team Providers Care Assistant Loan Processor Name Role Phone Kateryna Estrada Primary Care Provider Unavailab Anshu Palomo Unavailable [phone] Allergies No Known Allergies Reason For Referral Referring Provider First Name Kateryna Referring Provider Last Name Sean Referring Provider Speciality Internal M edicine Referred Organization [facility] Referred Provider Anshu Haines Referred Address [address],[place], [place],[address],[place] Referred Provider Specialty Gastroentero logy General Notes Stephanie Gentile 2024 08:42:45 AM >request a [facility] referral from Dr. Estrada's office for visit with Dr. Haines on 08-02-24 dx reflux [phone], Stephanie Gentile 08/01/2024 10:29:22 AM >requested from student at Dr. Estrada's office, Stephanie Gentile 08/08/2024 02:05:38 PM >Call [facility] to request referral Referral Priority Routine Medications Medication SIG (Take, Route, Frequency, Duration) [...] GM/SCOOP as directed Orally PRN 11/15/2024 Not-Taking Immunizations Vaccine Route Administration Date Status Comme nts Influenza Unknown 11/08/2024 Administered Social History Tobacco Use: Social History Observation [...] Risk Notes Problem Elevated liver enzymes level (133451174) Elevated liver function tests (R79.89) Active confirmed Problem Gastroesophageal reflux disease (382104068) GERD (gastroesoph ageal reflux disease) (K21.9) Active confirmed Vital Signs Temperature 98.2 degrees Fahrenheit 11/15/2024 Blood pressure diastolic 01 mm Hg 11/15/2024 Height 62 in 11/15/2024 Blood pressure systolic 001 mm Hg 11/15/2024 Weight 104.6 lbs 11/15/2024 BMI 19.13 kg/m2 11/15/2024 Encounters Encounter Location Date Provider Diagnosis [facility] [address] [place] [id number] 11/15/2024 Anshu Haines Elevated liver function tests R79.89 and GERD (gastroesophageal reflux disease) K21.9 [facility] [address] [place] [address] 08/02/2024 Anshu Haines Assessments Encounter Date Diagnosis (ICD Code) Assessment Notes Treatment Notes Treatment Clinical Notes Section Notes 11/15/2024 Elevated liver function tests (ICD-10 - R79.89) Need Pediatric GI Dr. Vasques records from [facility] re: liver biopsy, etc 11/15/2024 GERD (gastroesophage al reflux disease) (ICD-10 - K21.9) Plan Of Treatment Pending Test Test Name Order Date LIVER PROFILE 11/15/2024 CBC w DIFF 11/15/2024 Prothrombin Time INR 11/15/2024 Liver Fibrosis Pnl 11/15/2024 Insurance Providers Payer Name Payer Address Payer Phone Subscriber Number Group Number Insured Name Patient Relationship to Insured Coverage Start Date Coverage End Date [facility] [employer] [facility] [address] [place] [address] [phone] [id number] RACHID CONWAY Self - patient is the insured [facility] [address] [place] [phone] [id number] RACHID CONWAY Self - patient is the insured Medical (General) History Medical History History ICD Code Asthma GERD Denies [place],DM,CVA,Lung disease,renal dise ase Cerebral palsy-affects walking, legs, et c, Surgical History Surgery Date(Month/Year) Hamstring lengthening 2017
[2024-11-22 13:21] LABS: MANUAL DIFF FLAG NO
[2024-11-22 13:27] LABS: Hematocrit 45.1 % (42.0-52.0); Hemoglobin 15.6 g/dl (14.0-18.0); Imm Gran Abs Auto 0.01 X10*3/uL (0.00-0.03); Imm Gran Pct Auto 0.2 % (0.0-0.4); Lymphocytes Absolute Auto 2.2 X10*3/uL (1.2-4.9); Mean Corpuscular HGB Conc 34.6 g/dl (31.0-36.0); Mean Corpuscular Hemoglobin 30.4 pg (27.0-33.0); Mean Corpuscular Volume 87.7 fL (80.0-98.0); NRBC Abs Auto 0.000 X10*3/uL (0.0-0.012); NRBC Pct Auto 0.0 /100WBC (0.0-0.2); Platelet Count 186 X10*3/uL (160-400); Red Blood Count 5.14 X10*6/uL (4.60-5.80); White Blood Count 5.8 X10*3/uL (4.8-10.8)
[2024-11-22 13:36] LABS: INTERNATIONAL NORM RATIO 1.0 (0.9-1.1); Prothrombin Time 11.4 SEC (10.9-12.4)
[2024-11-22 13:59] LABS: Alanine Aminotransferase 210 U/L (0-40); Albumin Level 5.0 g/dL (3.5-5.0); Aspartate Amino Transferase 60 U/L (5-37); Total Protein 7.6 g/dL (6.5-8.0)
[2024-11-22 14:12] LABS: Alkaline Phosphatase 84 U/L (39-117)
[2024-11-29 11:48] LABS: FIB-ALT 160 U/L (9-46); FIB-Alpha-2-Macroglobulin 153 mg/dL (106-279); FIB-Apolipoprotein A1 192 mg/dL (94-176); FIB-GGT 115 U/L (3-70); FIB-Haptoglobin 307 mg/dL (43-212); FIB-Total Bilirubin 0.9 mg/dL (0.2-1.2); Liver Fibrosis Score 0.08; Liver Fibrosis Stage F0; Nec Inflam Act Grade A3; Nec Inflam Act Score 0.67
== END 2024-11-22 10:47 | disposition home or self-care (01) ==
LOC: HO.10HDL 10:46
PROVIDERS: Visit Provider Internal Medicine
DX: R79.89 Other specified abnormal findings of blood chemistry (principal)
CPT/HCPCS: 36415; 80076; 81596; 85025; 85610